=== PATIENT | female | born 1980 | race Caucasian/White ===

== ENCOUNTER 2016-09-06 14:46 | Inpatient (IN) | payer OTHER ==
--- NOTE | ~2016-09-06 | HP ---
Unit #: [id number] #: [id number] Patient: DARYA DUPREE [id number] [place] [address] [id number] MR#: [id number] NAME: DARYA DUPREE. ROOM: [facility] Age: 36 Sex: F Admission Date: 09/06/2016 : 1980 Attending Physician: Victor Hugo Black M.D. Admitting Physician: Victor Hugo Black M.D. Primary Care Physician: Generic Doctor Not In System HISTORY AND PHYSICAL Darya is a 36 year old admitted and discharged within the first 24 hours. She was not seen for an H and P. Dictated by... Tasha Alexander P.A.-C. for Emma Jorge/farooq TD: 09/07/2016 17:25 JOB #: [id number] HISTORY AND PHYSICAL Page 1 of 1 X Tasha Alexander X HISTORY AND PHYSICAL
--- NOTE | ~2016-09-06 | PA ---
Unit #: [id number] #: [id number] Patient: DARYA DUPREE [id number] [facility] [address] [address] [id number] MR#: [id number] NAME: DARYA DUPREE. ROOM: [facility] Age: 36 Sex: F Admission Date: 09/06/2016 : 1980 Date of Assessment: 09/07/2016 Attending Physician: Victor Hugo Black M.D. Admitting Physician: Victor Hugo Black M.D. Primary Care Physician: Generic Doctor Not In System PSYCHIATRIC ASSESSMENT INFORMANTS The patient reliability, fair informant and chart reliability, good. CHIEF COMPLAINT Substance abuse. HISTORY OF PRESENT ILLNESS Ms. Quinn is a 36-year-old female, presented with the above-mentioned complaint. The patient was admitted due to suicidal ideation and substance abuse. The patient reported after her in March of last year, started feeling more sad and depressed and started drinking. The patient reported that is making her more sad and depressed. The patient reported multiple symptoms of depression and anxiety including trouble sleeping. The patient reported headache, panic attacks, poor appetite, feeling of hopelessness, worthlessness, withdrawal from support system, tearful, flat affect, sad, dysphoric, and suicidal ideation with several plans, but denied at this time. The patient has been drinking almost 12 packs of beer nightly for the past month, last use two nights ago. The patient reported withdrawal symptoms. Used Xanax also. Reported history of 5 DUIs. Denied any homicidal ideation. The patient denied any suicidal ideation to the report writer. The patient was recommended for inpatient admission at this time for psychiatric stabilization. PAST PSYCHIATRIC HISTORY Remarkable for history of previous outpatient treatment. No history of any inpatient treatment or any suicide attempt. FAMILY HISTORY AND SOCIAL HISTORY The patient reports she has a daughter, 2 years old. Good support from family. The patient reports she works at [employer]. No known history of any psychiatric illness in the family, except for history of alcohol abuse in mother. No known history of any abuse. MEDICAL HISTORY Remarkable for asthma and hypertension. Musculoskeletal; muscle strength and tone, no atrophy or abnormal movement. Gait normal. MEDICATION HISTORY The patient is currently on Wellbutrin, lisinopril, and albuterol. ALLERGIES No known drug allergies. Unit #: [id number] #: [id number] Patient: DARYA DUPREE SUBSTANCE ABUSE HISTORY The patient reported tobacco use, age of onset 10; alcohol, age of onset 11; marijuana, age of onset 11; and benzodiazepine, age of onset 36. The patient reported longest period of sobriety 2 years. Last period of sobriety 2 days ago. The patient reported history of blackouts. No history of any IV drug use, hepatitis, or HIV, but reported withdrawal symptoms such as abdominal cramping and nausea. REVIEW OF SYSTEMS HEENT: Eyes, clear. Ears, nose, mouth, and throat; clear. CARDIOVASCULAR: Unremarkable. RESPIRATORY: Unremarkable. GI: Unremarkable. : Unremarkable. SKIN: Unremarkable. LYMPH NODE: Unremarkable. NEUROLOGIC: Unremarkable. ENDOCRINE: Unremarkable. HEMATOLOGIC: Unremarkable. ALLERGIC/IMMUNOLOGIC: Unremarkable. MUSCULOSKELETAL: Muscle strength and tone, no atrophy or abnormal movement. Gait normal. MENTAL STATUS EXAMINATION CONSTITUTIONAL: Measurement of vital signs; temperature 98.0, heart rate 92, respiratory rate 18, blood pressure 152/91. Height 5 feet 3 inches and weight 160 pounds. GENERAL APPEARANCE: The patient dressed casually. The patient did not show any facial deformity. MUSCULOSKELETAL: Please see above. PSYCHIATRIC EXAMINATION Description of speech; regular rate, normal volume, normal articulation, and coherent. Description of thought process, goal directed. Description of association, intact. Description of abnormal psychotic thinking; the patient denied any hallucination or delusions, but denied any suicidal or homicidal ideation at this time. Denied any psychotic symptom, but history of substance abuse as mentioned above. Description of the patient's judgment: Concerning everyday activity, poor. Social situation, poor. Concerning psychiatric condition, poor. Complete mental status examination; oriented in time, place, and person. Recent and remote memory, fair. Attention span and concentration, fair. Language, able to name object and repeat phrases. Fund of knowledge, aware of current event and passive vocabulary intact. Mood and affect, sad and dysphoric. Insight and judgment, fair to poor. ASSETS AND LIABILITIES Assets, the patient is articulate and able to take care of her ADL. Liability, history of substance abuse and depression. ADMITTING DIAGNOSES Psychiatric: Mood disorder, not otherwise specified, F32.9; rule out major depressive disorder; and alcohol use disorder, severe, F10.20. Secondary diagnosis: Deferred. Medical diagnoses: Hypertension and asthma. Unit #: [id number] #: [id number] Patient: DARYA DUPREE Stressors: Psychosocial stressors. PSYCHIATRIC PLAN AND TREATMENT GOAL AND DISCHARGE PLAN 1. Advised to admit the patient on the inpatient unit. Provide safe, supportive, and structured environment. 2. Ordered labs; CBC, CMP, UA, and UDS. 3. Precaution for aggression and self-harm. 4. Detox protocol and detox monitoring. 5. Advised to resume home medication. If needed, consider further adjustment of medication. 6. The patient to attend all the programing on the inpatient unit, group therapy, individual therapy, family session. TREATMENT GOAL To attain euthymic mood, gain insight into her problem, and learn coping skills. DISCHARGE PLAN Plan to stabilize the patient and consider followup in outpatient program. ESTIMATED LENGTH OF STAY 3 to 5 days. Dictated by... Victor Hugo Black M.D. BRITT/abi TD: 09/07/2016 15:34 JOB #: [id number] PSYCHIATRIC ASSESSMENT Page 1 of 1 X Victor Hugo Black MD X PSYCHIATRIC ASSESSMENT
[2016-09-07 10:13] LABS: BASOPHIL# 0.1 X10e3 (0-0.3); BASOPHIL% 0.4 % (0-2.5); EOSINOPHIL# 0.4 X10e3 (0-0.7); EOSINOPHIL% 2.8 % (0.0-7.0); HEMOGLOBIN 14.4 gm/dL (12.0-16.0); LYMPHOCYTE# 3.2 X10e3 (1.0-3.5); LYMPHOCYTE% 24.6 % (17.0-45.0); MEAN CELL VOLUME 88.3 FL (83-96); MEAN CORPUSCULAR HEMOGLOBIN 28.2 PG (28-34); MEAN PLATELET VOLUME 9.1 FL (6.5-11.5); MONOCYTE# 0.8 X10e3 (0-1.0); MONOCYTE% 6.1 % (3.0-12.0); NEUTROPHIL# 8.5 X10e3 (1.5-7.1); NEUTROPHIL% 66.1 % (40-75); PLATELET COUNT 296 X10e3 (140-420); RED CELL DISTRIBUTION WIDTH 14.8 % (11.0-15.5); WHITE BLOOD COUNT 12.9 X10e3 (4.0-10.5)
[2016-09-07 10:14] LABS: DIFF IND NO
[2016-09-07 10:27] LABS: URINE APPEARANCE CLOUDY; URINE BILIRUBIN NEG (NEG); URINE BLOOD NEG (NEG); URINE COLOR YELLOW; URINE GLUCOSE NORM (NORM); URINE KETONE NEG (NEG); URINE LEUKOCYTE ESTERASE NEG (NEG); URINE NITRATE NEG (NEG); URINE PH 6.5 (5-8); URINE PROTEIN 1+ (NEG); URINE UROBILINOGEN NORM (NORM)
[2016-09-07 10:32] LABS: URINE BACTERIA AUWI 3+ (NEGATIVE); URINE SQUAMOUS EPITHELIAL CELL MANY /[HPF]
[2016-09-07 10:33] LABS: ALBUMIN SERUM 4.2 g/dL (3.5-5.0); BILIRUBIN,TOTAL 0.9 mg/dL (0.2-2.0); BUN/CREATININE RATIO 11.66; CALCIUM SERUM 9.5 mg/dL (8.4-10.2); CREATININE SERUM 0.6 mg/dL (0.6-1.4); GLOM FILT RATE Estimated 115.6 mL/min (>60); POTASSIUM 4.2 mmol/L (3.5-5.1); PROTEIN TOTAL SERUM 7.1 g/dL (6.0-8.3)
[2016-09-07 10:42] LABS: U HYALINE CASTS AUWI 0-2 /[LPF]; URINE MUCUS PRESENT
[2016-09-07 10:43] LABS: URINE CRYSTALS CALCIUM OXALATE /[HPF]
[2016-09-07 10:44] LABS: URBCS1 AUWI NEG /[HPF] (0-2)
[2016-09-07 11:12] LABS: AMPHETAMINE NEG (NEG); BARBITURATES NEG (NEG); BENZODIAZEPINES POS (NEG); COCAINE NEG (NEG); MARIJUANA POS (NEG); OPIATES NEG (NEG); TRICYCLIC ANTIDEPRESSANTS NEG (NEG); U METHADONE NEG (NEG)
== END 2016-09-07 14:04 | disposition left against medical advice (07) | DRG 885 ==
LOC: UNDOADMIN 14:46 → P2S 14:46
PROVIDERS: Psychiatry & Neurology Psychiatry
PROC: HZ2ZZZZ Detoxification Services for Substance Abuse Treatment (ICD-10-PCS; principal; 2016-09-06)
DX: F39 Unspecified mood [affective] disorder (principal); F13.20 Sedative, hypnotic or anxiolytic dependence, uncomplicated; I10 Essential (primary) hypertension; F32.9 Major depressive disorder, single episode, unspecified; F10.20 Alcohol dependence, uncomplicated; J45.909 Unspecified asthma, uncomplicated; F12.20 Cannabis dependence, uncomplicated
CPT/HCPCS: 80053; 80307; 81003; 84703; 85025